=== PATIENT | female | born 1980 | race American Indian/Alaskan Native ===

== ENCOUNTER 2020-12-19 23:26 | Emergency (ER) | payer OTHER ==
[2020-12-20 00:14] VITALS: BP 140/90
[2020-12-20] MEDS ORDERED: FAMOTIDINE 20 MG TAB PO ONE (00:18)
[2020-12-20] MEDS ORDERED: ASPIRIN 325 MG TAB PO ONE (00:18)
--- NOTE | 2020-12-20 00:40 | XRay Report ---
CHEST PA AND LATERAL VIEWS INDICATION: CHEST PAIN. COMPARISON: None. FINDINGS: Support devices: None. Heart: Within normal limits. Lungs/Pleura: No acute pulmonary or pleural findings. Scoliosis is noted. IMPRESSION: 1. No acute findings. Signer Name: Iván Sal MD Signed: 12/20/2020 12:36 AM Workstation Name: [id number]
--- NOTE | 2020-12-20 01:46 | Emergency Department Report ---
ED Chest Pain HPI - General Chief Complaint: Chest Pain Stated Complaint: CHEST PAIN Time Seen by Provider: 12/20/20 00:26 Source: patient Mode of arrival: Ambulatory Limitations: No Limitations - History of Present Illness Initial Comments: Patient is a 40-year-old -M[place] female with no past medical history who presents to the ED with complaint of acute onset persistent anterior chest pain that radiates to the mid posterior thoracic area for the last 2 hours. Patient states that the pain is sharp and constant and is worse with movement or inhalation. Patient states that she was driving when she is suddenly felt a sharp pain in the anterior chest wall and that the pain was constant persistent and she decided to come to the ED for evaluation. Patient denies dizziness, syncope, headache, nausea and vomiting, abdominal pain, diaphoresis, neck pain, heavy lifting, traumatic injury, numbness and tingling or weakness of upper and lower extremities bilaterally. MD Complaint: chest pain (Substernal chest pain that radiates to the mid posterior thoracic area) -: Sudden, hour(s) (2) Onset: during rest Pain Location: substernal Pain Radiation: back (Mid posterior thoracic area) Severity: severe Severity scale (0 -10): 7 Quality: aching, sharp Consistency: constant Improves With: nothing Worsens With: inspiration, palpation, movement re: denies: nausea, vomting, diaphoresis, dyspnea, sense of impending doom Other Symptoms: denies: cough, fever, syncope, rash, acid taste in mouth, leg swelling, palpitations, burping, other Treatments Prior to Arrival: none - Related Data On Oral Contraceptives: No Allergies Allergy/AdvReac Type Severity Reaction Status Date / Time codeine Allergy Unknown Verified 12/20/20 00:14 Heart Score - HEART Score History: Slightly suspicious EKG: Normal Age: < 45 Risk factors: No known risk factors Troponin: < normal limit HEART Score: 0 - EKG Read Time Time EKG Completed: 00:45 EKG Read Time: 00:50 - Critical Actions Critical Actions: 0-3 pts:0.9-1.7%risk of adverse cardiac event.Candidate for discharge ED Review of Systems ROS: Stated complaint: CHEST PAIN Other details as noted in HPI Constitutional: denies: chills, fever Eyes: denies: eye pain, eye discharge, vision change ENT: denies: ear pain, throat pain Respiratory: denies: cough, shortness of breath, wheezing Cardiovascular: chest pain (Anterior chest pain that radiates to the mid posterior thoracic area). denies: palpitations Endocrine: no symptoms reported Gastrointestinal: denies: abdominal pain, nausea, vomiting, diarrhea Genitourinary: denies: urgency, dysuria, discharge Musculoskeletal: denies: back pain, joint swelling, arthralgia Skin: denies: rash, lesions Neurological: denies: headache, weakness, paresthesias Psychiatric: denies: anxiety, depression Hematological/Lymphatic: denies: easy bleeding, easy bruising ED Past Medical Hx - Past Medical History Previous Medical History?: No - Surgical History Past Surgical History?: No ED Physical Exam - General Limitations: No Limitations General appearance: alert, in no apparent distress - Head Head exam: Present: atraumatic, normocephalic, normal inspection - Eye Eye exam: Present: normal appearance, PERRL, EOMI Pupils: Present: normal accommodation - ENT ENT exam: Present: normal exam, normal orophraynx, mucous membranes moist, TM's normal bilaterally, normal external ear exam - Neck Neck exam: Present: normal inspection, full ROM - Respiratory Respiratory exam: Present: normal lung sounds bilaterally, chest wall tenderness (Palpable anterior chest wall tenderness). Absent: respiratory distress, wheezes, rales, rhonchi, accessory muscle use, decreased breath sounds - Cardiovascular Cardiovascular Exam: Present: regular rate, normal rhythm, normal heart sounds. Absent: systolic murmur, diastolic murmur, rubs, gallop - GI/Abdominal GI/Abdominal exam: Present: soft, normal bowel sounds. Absent: tenderness, guarding, rebound, hyperactive bowel sounds, hypoactive bowel sounds, organomegaly - Extremities Exam Extremities exam: Present: normal inspection, full ROM, normal capillary refill - Back Exam Back exam: Present: normal inspection, full ROM. Absent: tenderness, CVA tenderness (R), CVA tenderness (L), muscle spasm, paraspinal tenderness, vertebral tenderness - Neurological Exam Neurological exam: Present: alert, oriented X3, CN II-XII intact, normal gait, reflexes normal - Psychiatric Psychiatric exam: Present: normal affect, normal mood - Skin Skin exam: Present: warm, dry, intact, normal color. Absent: rash ED Course Vital Signs 12/20/20 00:10 Temperature 98.1 F Pulse Rate 73 Respiratory 18 Rate Blood Pressure 140/90 O2 Sat by Pulse 98 Oximetry MELVIN score - Melvin Score Age > 65: (0) No Aspirin use within the Past 7 Days: (0) No 3 or more CAD Risk Factors: (0) No 2 or more Angina events in past 24 hrs: (0) No Known CAD with more than 50% Stenosis: (0) No Elevated Cardiac Markers: (0) No ST Deviation Greater than 0.5mm: (0) No MELVIN Score: 0 ED Medical Decision Making - EKG Data EKG shows normal: sinus rhythm Rate: normal - EKG Data Interpretation: normal EKG 12/20/20 01:49 EKG shows normal sinus rhythm with a ventricular rate of [address] or T wave abnormalities. - Radiology Data Radiology results: report reviewed, image reviewed [address] [address] XRay Report Signed Patient: TARYN ISRAEL MR#: [id number] 75 : 1980 Acct:[id number] Age/Sex: 40 / F ADM Date: 12/19/20 Loc: ED Attending Dr: Ordering Physician: REFUGIO HERNANDEZ Date of Service: 12/20/20 Procedure(s): XR chest routine 2V Accession Number(s): [id number] cc: REFUGIO HERNANDEZ Fluoro Time In Minutes: CHEST PA AND LATERAL VIEWS INDICATION: CHEST PAIN. COMPARISON: None. FINDINGS: Support devices: None. Heart: Within normal limits. Lungs/Pleura: No acute pulmonary or pleural findings. Scoliosis is noted. IMPRESSION: 1. No acute findings. Signer Name: Iván Sal MD Signed: 12/20/2020 12:36 AM Workstation Name: [id number] Transcribed By: RENAY Dictated By: Iván Sal MD Electronically Authenticated By: Iván Sal MD Signed Date/Time: 12/20/2035 DD/ TD/TT: - Medical Decision Making This is a 40-year-old -[place] female with no past medical history who presents to the ED with complaint of acute onset persistent anterior chest pain that radiates to the mid posterior thoracic area for the last 2 hours. Patient states that the pain is sharp and constant and is worse with movement or inhalation. Patient states that she was driving when she is suddenly felt a sharp pain in the anterior chest wall and that the pain was constant persistent and she decided to come to the ED for evaluation. In the ED, patient is alert and oriented x3 and is not in any distress. Patient is hemodynamically stable. EKG shows normal sinus rhythm with a ventricular rate of [address] or T wave abnormalities. Chest x-ray showed no acute cardiopulmonary abnormalities or pneumonitis. Patient declined any lab tests in the ED to rule out any c ardiopulmonary abnormalities or ACS or PE. Patient was informed of the importance of the lab tests specific for chest pain to rule out any abnormal cardiac events or pathology but the patient stated that she does not wish to proceed with the tests and opted to sign out of the ED AGAINST MEDICAL ADVICE. Patient left the ED after signing out AGAINST MEDICAL ADVICE. - Differential Diagnosis ACS, PE, dissection, pneumonia, muscle strain, muscle spasm, Critical care attestation.: If time is entered above; I have spent that time in minutes in the direct care of this critically ill patient, excluding procedure time. ED Disposition Clinical Impression: Atypical chest pain Disposition: 07 LEFT AGAINST MEDICAL ADVICE Is pt being admited?: No Does the pt Need Aspirin: No Condition: Undetermined Instructions: Nonspecific Chest Pain, Adult, [id number] Time of Disposition: 01:40 Print Language: SOUTH KOREAN
--- NOTE | 2020-12-20 09:17 | Electrocardiograph Report ---
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
== END 2020-12-20 01:39 | disposition left against medical advice (07) ==
LOC: ED 23:26
DX: R07.89 Other chest pain (principal)
CPT/HCPCS: 71046; 93005; 99283